=== PATIENT | female | born 1950 | race Caucasian/White ===

== ENCOUNTER 2018-09-14 13:43 | Outpatient (CLI) | payer BC ==
--- NOTE | 2018-09-14 14:44 | RAD ---
CERVICAL SPINE RADIOGRAPHS: INDICATIONS: History of cervicalgia. FINDINGS: There is slight anterior translation of C4 on C5, C5 on C6, and C6 on C7. There is advanced facet os teoarthrosis of C3-C4 through C6-C7. No acute fracture is evident. Osseous neural foraminal . The lung apices are clear. The lateral masses appears symmetric. IMPRESSION: Moderate to severe cervical spondylosis with slight anterior translation of C4 on C5, C5 on C6, and C 6 on C7. POS: [facility]
== END 2018-09-14 13:44 | disposition home or self-care (01) ==
LOC: BICRAD 13:43
PROVIDERS: ATTEND Chiropractor
DX: M54.2 Cervicalgia (principal); M53.86 Other specified dorsopathies, lumbar region; M79.10 Myalgia, unspecified site; M47.812 Spondylosis without myelopathy or radiculopathy, cervical region
CPT/HCPCS: 72050

== ENCOUNTER 2018-10-11 09:19 | Outpatient (CLI) | payer BC ==
--- NOTE | 2018-10-11 10:01 | RAD ---
EXAM: XR Lumbar Spine 2 Or 3 View PROVIDED CLINICAL HISTORY: Spondylosis. Patient states low back pain with pain extending down legs bilaterally. Symptoms have be en present for 6 months. COMPARISON: None FINDINGS: There are 5 nonrib-bearing lumbar-type vertebral bodies. The vertebral body heights and intervertebra l disc spaces are within normal limits. No fracture or subluxation is seen involving the lumbar spine. IMPRESSION: No acute findings involving the lumbar spine.
--- NOTE | 2018-10-11 12:51 | BD ---
Exam: DEXA Bone Density 10/11/18 COMPARISON: None. HISTORY: 68-year-old postmenopausal female for screening. FINDINGS: Lumbar Spine: BMD (g/cm2) T-SCORE L1 1.043 0.5 L2 1.175 1.3 L3 1.186 0.9 L4 1.162 0.9 L1-L4 1.145 0.9 Left Femoral Neck: 0.833 -0.1 Total Proximal Left Femur: 1.162 1.8 Right Femoral Neck: 0.834 -0.1 Total Proximal Right Femur: 1.104 1.3 Impression: Normal bone mineral density. This patient has a ten year WHO fracture risk of a major osteoporotic fr acture of 7% and hip fracture of 0.3%. POS: [facility]
== END 2018-10-11 09:20 | disposition home or self-care (01) ==
LOC: BICMAMMO 09:19
PROVIDERS: ATTEND Internal Medicine Rheumatology
DX: M81.0 Age-related osteoporosis without current pathological fracture (principal); M47.9 Spondylosis, unspecified
CPT/HCPCS: 72100; 77080

== ENCOUNTER 2019-06-26 08:38 | Outpatient (CLI) | payer BC ==
[2019-06-26 09:17] LABS: Estimated GFR-MDRD - POC Greater than 90
--- NOTE | 2019-06-26 10:08 | CT ---
CT of theneck: 06/26/2019 COMPARISON:None available HISTORY:Palpable nodule on the right side of the neck TECHNIQUE: Serial axial CT imaging at3 mm intervals from theskull base through the lung apices with I V contrast. Coronal and sagittal reformatted imaging obtained. Findings:The imaged lung apices appear grossly unremarkable. Mastoid air cells on the right demonstrate nonspecific opacification. Imaged paranasal sinuses and im aged left mastoid air cells appear well aerated. The retroantral fat and the parapharyngeal fat appears clear bilaterally. There is no evidence for a mass within the submandibular gland or the parotid gland on either side. The thyroid gland, level of the glottis, cricoid cartilage, thyroid cartilage, hyoid bone, epiglottis , preepiglottic fat, and level of the palatine tonsils appears unremarkable. A needle cap john the area of palpable concern on the right. No enlarged lymph node or mass lesion i s seen in this region. There are a few scattered normal-appearing nonenlarged subcentimeter lymph nodes within level 2A bilaterally. No lymphadenopathy is evident within the neck. The vascular structures of the neck appear grossly unremarkable. Degenerative changes noted within th e cervical spine, including prominent degenerative change at the atlantoaxial interspace, multilevel bilateral cervical spine facet hypertrophic change, and mild anterolisthesis at the C3-4, C4-5, and C5-6 levels. Impression:No mass lesion or lymphadenopathy noted. In the area of palpable concern, no discrete CT a bnormality is apparent.
[2019-06-26] MEDS ORDERED: Iopamidol-370 76% 500 ML 1 ML ONE (14:33)
== END 2019-06-26 08:39 | disposition home or self-care (01) ==
LOC: BICCT 08:38
PROVIDERS: ATTEND Otolaryngology Plastic Surgery within the Head & Neck
DX: K11.8 Other diseases of salivary glands (principal)
CPT/HCPCS: 70491; 82565; Q9967

== ENCOUNTER 2021-01-29 13:59 | Outpatient (CLI) | payer MEDICARE, OTHER | END 2021-01-29 14:00 | disposition home or self-care (01) | LOC: BICMAMMO 13:59 | PROVIDERS: ATTEND Internal Medicine Rheumatology | DX: M81.0 Age-related osteoporosis without current pathological fracture (principal); M17.12 Unilateral primary osteoarthritis, left knee | CPT/HCPCS: 77080 ==

== ENCOUNTER 2022-05-05 14:42 | Outpatient (CLI) | payer MEDICARE, OTHER | END 2022-05-05 14:43 | disposition home or self-care (01) | LOC: BICRAD 14:42 | PROVIDERS: ATTEND Internal Medicine Rheumatology | DX: M17.12 Unilateral primary osteoarthritis, left knee (principal) ==

== ENCOUNTER 2022-08-11 12:07 | Outpatient (CLI) | payer MEDICARE | END 2022-08-11 12:08 | disposition home or self-care (01) | LOC: BICMAMMO 12:07 | PROVIDERS: ATTEND Family Medicine | DX: Z12.31 Encounter for screening mammogram for malignant neoplasm of breast (principal) | CPT/HCPCS: 77063; 77067 ==

== ENCOUNTER 2023-02-12 10:36 | Outpatient (CLI) | payer MEDICARE | END 2023-02-12 10:37 | disposition home or self-care (01) | LOC: BICMAMMO 10:36 | PROVIDERS: ATTEND Internal Medicine Rheumatology | DX: M81.0 Age-related osteoporosis without current pathological fracture (principal) | CPT/HCPCS: 77080 ==

== ENCOUNTER 2023-03-29 10:34 | Outpatient (CLI) | payer MEDICARE | END 2023-03-29 10:35 | disposition home or self-care (01) | LOC: BICRAD 10:34 | PROVIDERS: ATTEND Internal Medicine Rheumatology | DX: M47.812 Spondylosis without myelopathy or radiculopathy, cervical region (principal) | CPT/HCPCS: 72052 ==

== ENCOUNTER 2023-10-20 12:27 | Outpatient (CLI) | payer MEDICARE | END 2023-10-20 12:28 | disposition home or self-care (01) | LOC: BICMAMMO 12:27 | PROVIDERS: ATTEND Family Medicine | DX: Z12.31 Encounter for screening mammogram for malignant neoplasm of breast (principal); N63.10 Unspecified lump in the right breast, unspecified quadrant; Z80.3 Family history of malignant neoplasm of breast | CPT/HCPCS: 77063; 77067 ==

== ENCOUNTER 2023-11-04 14:58 | Outpatient (CLI) | payer MEDICARE | END 2023-11-04 14:59 | disposition home or self-care (01) | LOC: BICMAMMO 14:58 | PROVIDERS: ATTEND Family Medicine | DX: N63.13 Unspecified lump in the right breast, lower outer quadrant (principal); N60.01 Solitary cyst of right breast | CPT/HCPCS: 76642; 77065; G0279 ==

== ENCOUNTER 2024-04-24 11:27 | Outpatient (CLI) | payer MEDICARE | END 2024-04-24 11:28 | disposition home or self-care (01) | LOC: BICRAD 11:27 | PROVIDERS: ATTEND Family Medicine | DX: R91.8 Other nonspecific abnormal finding of lung field (principal) | CPT/HCPCS: 71046 ==

== ENCOUNTER 2025-01-01 13:49 | Outpatient (CLI) | payer MEDICARE | END 2025-01-01 13:50 | disposition home or self-care (01) | LOC: BICMAMMO 13:49 | PROVIDERS: ATTEND Family Medicine | DX: Z12.31 Encounter for screening mammogram for malignant neoplasm of breast (principal); Z80.3 Family history of malignant neoplasm of breast | CPT/HCPCS: 77063; 77067 ==